=== PATIENT | female | born 1955 | race Caucasian/White ===

== ENCOUNTER → 2018-05-17 12:05 | Outpatient (CLI) | payer MEDICARE, SELFPAY | PROVIDERS: PCP Family Medicine; Visit Provider Surgery | DX: K21.9 Gastro-esophageal reflux disease without esophagitis (principal); E11.9 Type 2 diabetes mellitus without complications; Z79.4 Long term (current) use of insulin | CPT/HCPCS: 99213 ==

== ENCOUNTER 2018-06-21 01:05 | Outpatient (CLI) | payer MEDICARE, SELFPAY ==
[2018-06-21 11:31] LABS: Hemoglobin A1C 6.4 % (4.5-6.2)
== END 2018-06-21 01:25 ==
PROVIDERS: PCP Family Medicine; Visit Provider Internal Medicine Endocrinology, Diabetes & Metabolism
DX: E11.65 Type 2 diabetes mellitus with hyperglycemia (principal)
CPT/HCPCS: 36415; 83036

== ENCOUNTER 2018-10-29 08:18 | Outpatient (CLI) | payer MEDICARE, SELFPAY ==
[2018-10-29 13:16] LABS: Hemoglobin A1C 6.8 % (4.5-6.2)
== END 2018-10-29 08:38 ==
PROVIDERS: PCP Family Medicine; Visit Provider Family Medicine
DX: E11.65 Type 2 diabetes mellitus with hyperglycemia (principal)
CPT/HCPCS: 36415; 83036

== ENCOUNTER 2018-11-30 16:58 | Outpatient (REF) | payer MEDICARE, SELFPAY | END 2018-11-30 17:18 | LOC: LBN 16:58 | PROVIDERS: PCP Family Medicine; Visit Provider Family Medicine | DX: N39.0 Urinary tract infection, site not specified (principal) | CPT/HCPCS: 87077; 87086; 87186 ==

== ENCOUNTER 2018-12-15 11:22 | Outpatient (REF) | payer MEDICARE, SELFPAY | END 2018-12-15 11:42 | LOC: LBN 11:22 | PROVIDERS: PCP Family Medicine; Visit Provider Family Medicine | DX: N39.0 Urinary tract infection, site not specified (principal) | CPT/HCPCS: 87086 ==

== ENCOUNTER 2019-01-21 15:00 | Outpatient (REF) | payer MEDICARE, SELFPAY | END 2019-01-21 15:20 | LOC: LBN 15:00 | PROVIDERS: PCP Family Medicine; Visit Provider Family Medicine | DX: R30.0 Dysuria (principal) | CPT/HCPCS: 87077; 87086; 87186 ==

== ENCOUNTER 2019-04-19 02:06 | Outpatient (CLI) | payer MEDICARE, SELFPAY ==
[2019-04-19 08:56] LABS: Hemoglobin A1C 6.3 % (4.5-6.2)
== END 2019-04-19 02:26 ==
PROVIDERS: PCP Family Medicine; Visit Provider Family Medicine
DX: E11.9 Type 2 diabetes mellitus without complications (principal)
CPT/HCPCS: 36415; 83036

== ENCOUNTER 2019-07-26 02:08 | Outpatient (CLI) | payer MEDICARE, SELFPAY ==
[2019-07-26 09:34] LABS: Hemoglobin A1C 6.2 % (4.5-6.2)
[2019-07-26 09:38] LABS: Calculated LDL 138 mg/dL; Cholesterol 220 mg/dL (50-200); HDL Cholesterol 36 mg/dL (40-60); Triglyceride 231 mg/dL (30-150)
[2019-07-27 12:52] LABS: CREATININE 1.39 mg/dL (0.55-1.02); Estimated GFR 38.29 (mL/min/1.73m2); Potassium 3.9 mmol/L (3.5-5.1)
== END 2019-07-26 02:28 ==
PROVIDERS: PCP Family Medicine; Visit Provider Family Medicine
DX: E11.9 Type 2 diabetes mellitus without complications (principal); I10 Essential (primary) hypertension
CPT/HCPCS: 36415; 80061; 82565; 83036; 84132

== ENCOUNTER 2020-05-04 01:59 | Outpatient (CLI) | payer MEDICARE, SELFPAY ==
[2020-05-04 08:01] LABS: HCT 39.4 % (36.0-46.0); HGB 13.4 g/dL (12.0-15.5); Mean Corpuscular Hemoglobin 30.7 pg (27.0-33.0); Mean Corpuscular Volume 90.4 fL (80-95); Mean Platelet Volume 9.8 fL (8.0-11.0); Platelet Count 360 x1000/uL (130-400); RBC 4.36 m/cumm (4.00-5.20); RBC Distribution Width 13.4 % (11.7-14.6); White Blood Cell Count 5.45 k/cumm (4.4-10.8)
[2020-05-04 08:19] LABS: Hemoglobin A1C 6.5 % (3.8-5.6)
[2020-05-04 09:08] LABS: CREATININE 1.19 mg/dL (0.55-1.02); Calculated LDL 201 mg/dL (<100); Cholesterol 295 mg/dL (<200); Estimated GFR 45.67 (mL/min/1.73m2); HDL Cholesterol 35 mg/dL (40-60); Magnesium 1.7 mg/dL (1.8-2.4); Potassium 4.2 mmol/L (3.5-5.1); Triglyceride 299 mg/dL (<150)
== END 2020-05-04 02:19 ==
PROVIDERS: PCP Family Medicine; Visit Provider Family Medicine
DX: E78.5 Hyperlipidemia, unspecified (principal); K76.0 Fatty (change of) liver, not elsewhere classified; R73.9 Hyperglycemia, unspecified; I10 Essential (primary) hypertension; E83.42 Hypomagnesemia
CPT/HCPCS: 36415; 80061; 85027; 82565; 83036; 83735; 84132

== ENCOUNTER 2020-09-12 04:34 | Outpatient (CLI) | payer MEDICARE, SELFPAY ==
[2020-09-12 10:09] LABS: ALT 41 U/L (14-59); AST 26 U/L (15-37); Albumin 4.4 g/dL (3.4-5.0); Alkaline Phosphatase 69 U/L (46-116); Anion Gap 8.9 mmol/L (3-11); BUN 23 mg/dL (7-18); Bilirubin, Total 0.3 mg/dL (0.2-1.0); CO2 29.1 mmol/L (21.0-32.0); CREATININE 1.08 mg/dL (0.55-1.02); Calcium 9.6 mg/dL (8.5-10.1); Calculated LDL 200 mg/dL (<100); Chloride 105 mmol/L (98-107); Cholesterol 285 mg/dL (<200); Estimated GFR 51.08 (mL/min/1.73m2); Glucose 116 mg/dL (74-106); HDL Cholesterol 40 mg/dL (40-60); Sodium 143 mmol/L (136-145); TSH 2.11 uIU/mL (0.36-3.74); Total Protein 7.7 g/dL (6.4-8.2); Triglyceride 228 mg/dL (<150)
[2020-09-13 16:31] LABS: Lipoprotein (a) <6 mg/dL (<=30)
== END 2020-09-12 04:54 ==
PROVIDERS: PCP Family Medicine; Visit Provider Internal Medicine
DX: E78.2 Mixed hyperlipidemia (principal)
CPT/HCPCS: 36415; 80053; 80061; 83695; 84443

== ENCOUNTER 2020-11-09 02:04 | Outpatient (CLI) | payer MEDICARE, SELFPAY ==
[2020-11-09 08:42] LABS: Hemoglobin A1C 6.5 % (<5.7)
[2020-11-09 09:20] LABS: Magnesium 1.7 mg/dL (1.8-2.4)
== END 2020-11-09 02:24 ==
PROVIDERS: PCP Family Medicine; Visit Provider Family Medicine
DX: R73.9 Hyperglycemia, unspecified (principal); E83.42 Hypomagnesemia
CPT/HCPCS: 36415; 83036; 83735

== ENCOUNTER 2021-12-09 03:02 | Outpatient (CLI) | payer MEDICARE, SELFPAY ==
[2021-12-09 13:08] LABS: Hemoglobin A1C 6.3 % (<5.7)
[2021-12-09 13:24] LABS: BUN 25 mg/dL (7-18); CREATININE 1.2 mg/dL (0.55-1.02); Estimated GFR 44.95 (mL/min/1.73m2)
== END 2021-12-09 03:03 | disposition home or self-care (01) ==
LOC: LBO 03:02
PROVIDERS: PCP Family Medicine; Visit Provider Family Medicine
DX: N28.9 Disorder of kidney and ureter, unspecified (principal); E11.65 Type 2 diabetes mellitus with hyperglycemia
CPT/HCPCS: 36415; 84520; 82565; 83036

== ENCOUNTER 2021-12-10 11:21 | Outpatient (CLI) | payer MEDICARE, SELFPAY ==
--- NOTE | 2021-12-10 11:15 | RT.EKG_ITS ---
APPROVED REPORT Exam: Resting ECG Reason for Exam: chest discomfort Patient Location: O HR:81 bpm ECG Measurements Heart Rate 81 AXIS SD 169 P 56 QRSd 96 QRS -26 QT 388 T 93 QTc 450 Conclusion Sinus rhythm...normal P axis, V-rate 60- 99 Nonspecific T abnormalities, lateral leads...T <-0.10mV, I aVL V5 V6
== END 2021-12-10 11:22 | disposition home or self-care (01) ==
LOC: DI.CM 11:22
PROVIDERS: PCP Family Medicine; Visit Provider Family Medicine
DX: R07.89 Other chest pain (principal); R94.31 Abnormal electrocardiogram [ECG] [EKG]
CPT/HCPCS: 93010

== ENCOUNTER 2021-12-24 00:08 | Outpatient (CLI) | payer MEDICARE, SELFPAY ==
--- NOTE | 2021-12-24 06:45 | DI.NM_ITS ---
APPROVED REPORT Exam: Pharmacologic Patient Location: Out-Patient Room/Bed: Stress Nurse: Radha Jackson RN Ordering Provider:ANNIE CHAPIN, Contact Number: [phone] BMI: 27.67 Baseline Rhythm: Sinus Rhythm Indications: DIZZINESS, DYSPNEA ON EXERTION Medical History Medical History: HLD, DM, Migraines, Anxiety, Depression, Chronic pain, Venous insufficiency ob both lower extremities, GERD, Obstructive airway disease Cardiac Medications: Rosuvastatin, Omeprazole, Metoprolol succinate, Metformin, Losartan-Hydrochlorot hiazide, Insulin glargine, Ezetimibe, Aspirin, Allergies: Hydrocodone, Cortisone, Venlafaxine HCl, Amitriptyline, Lisinopril, Statins Cardiac Risk Factors: HTN, Hyperlipidemia, DM, PVD, Smoking (former) Previous Cardiac Procedures: None Pretest Chest Pain Characteristics: None Exercise History: Sedentary Physical Disabilities: None Lung Sounds: Clear to auscultation Heart Sounds: Regular Stress Test Details Test: Exercise stress converted to pharmacologic stress due to failure to obtain a diagnostic stress test. Reason for pharmacologic stress test: physical limitation. Nuclear Acquisition: Rest Tc-99m/Stress Tc-99m 1 day Rest Isotope: Tc-99m Sestamibi. Dose: 10.5 Date: 12/24/2021 Injection Time: 0900 Stress Isotope: Tc-99m Sestamibi. Dose: 31.0 Date: 12/24/2021 Injection Time: 1030 HR Resting HR Supine: 74 bpm Max Heart Rate (APMHR): 154.682074 bpm Resting HR Standin bpm Target HR (85% APMHR): 130.197272 bpm Max HR Achieved: 126 bpm % of APMHR: 81.82 Recovery HR: 95 bpm HR response to stress: Normal HR response to stress Comment: Nondiagnostic HR, unable to reach THR. Metoprolol succinate held for 24 hours prior to test. BP Resting BP Supine: 138/84 mmHg Resting BP Standin/78 mmHg Max BP: 138/84 mmHg Recovery BP: 126/74 mmHg BP response to stress: Normal blood pressure response to stress. ECG Resting ECG: Sinus Rhythm Ectopy: None Stress ECG: Sinus Tachycardia ST Change: No significant ST segment changes noted, Upsloping ST depression, Downsloping ST depressio n Arrhythmia: None Recovery ECG: Sinus Rhythm Recovery ST Change: Horizontal, Downward ST depression Lead(s): I, II, aVL, aVF, V4, V5 Recovery ST Deviation: 1 mm Recovery Arrhythmia: None Clinical Reason for Termination: Dyspnea Stress Symptoms: Dyspnea, Leg Fatigue, Headache Exercise duration: 06 min00 sec Highest Stage Reached: Stage 2: 2.5 mph at 12% grade. Exercise capacity: 7.05 METs Rate Pressure Product: [id number] Stress ECG Conclusion 1. Resting electrocardiogram was within normal limits 2. The patient underwent exercise treadmill testing and completed a workload of 7 METS. She also had pharmacologic stress with regadenoson 3. Normal heart rate and blood pressure response to exercise. Peak heart rate achieved was 81% of pr edicted for age 4. The electrocardiographic portion of the test was therefore nondiagnostic due to inadequate heart r ate 5. See MPI report Stress Test Summary STAGE Time (mins) Speed (mph) Grade (%) HR BP SYMPTOMS METS Supine 74 138/84 Standing 86 122/78 SpO2 98% 1 3 1.7 10 104 124/68 SpO2 96% 4.6 2 6 2.5 12 122 SpO2 98%, c/o moderate SOB 7 1 min post Lexiscan injection 124 134/68 SpO2 98% 3 min post Lexiscan injection 118 118/60 c/o continued mod. SOB, BLAIR 6 min post Lexiscan injection 105 118/70 tremulous/shaking 9 min post Lexiscan injection 95 126/74 symptoms resolved. Patient required prolonged recovery period for symptoms. Uncontrolled shaking in recovery period reso lved with a snack. MPI Conclusion Normal myocardial perfusion. There is no evidence of ischemia or prior infarction EF 58%, normal wall motion Radiologist Interpretation Radiologist agrees with Supervisor Coal Handling's Interpretation. Radiologist Interpretation by: Nani Newman MD Interpretation Date/Time: 12/24/2021 16:22:04
[2021-12-24] MEDS: Regadenoson 0.4 MG/5 ML SYR IVP (10:45)
== END 2021-12-24 00:28 ==
PROVIDERS: PCP Family Medicine; Visit Provider Family Medicine
DX: R06.09 Other forms of dyspnea (principal); R42 Dizziness and giddiness
CPT/HCPCS: 78452; 93016; 93018; 93017; J2785

== ENCOUNTER 2021-12-26 11:09 | Emergency (ER) | payer MEDICARE, SELFPAY ==
[2021-12-26 11:13] VITALS: BP 128/84; PULSE 90; RESP 18; TEMP 36.6; O2SAT 95
--- NOTE | 2021-12-26 11:15 | DI.CT_ITS ---
Exam(s) CT HEAD CERVICAL SPINE WO EXAM: CT HEAD CERVICAL SPINE WO CLINICAL HISTORY: Fall, posterior headache, blurry vision. TECHNIQUE: Imaging Protocol: Axial computed tomography images with coronal and sagittal reformatted images were created and reviewed COMPARISON: CT HEAD WITHOUT CONTRAST from 02/19/2018 FINDINGS: BRAIN: There are no skull fractures nor fluid in the visualized paranasal sinuses. There is no evidence of intracranial hemorrhage, mass effect, or shift of midline structures. There are no extra-axial fluid collections. The ventricles are not enlarged or shifted and there is no blo od within the ventricular system nor within the basal cisterns. CERVICAL SPINE: There is no evidence of fracture nor listhesis. No significant prevertebral soft tissue swelling. There is a sclerotic non expansile bone lesion in the right pedicle of C2. Probably benign bone jose nd. No other bone lesions seen. There is no significant facet arthropathy. There is no significant facet joint malalignment. No significant osseous lesions evident. Some degenerative disc disease changes are noted at C5-6 level. IMPRESSION: No acute intracranial findings on this noninfused CT scan of the brain. No evidence of cervical spine fracture, malalignment, nor acute compromise of the cervical spinal can al. Incidentally noted is a sclerotic non expansile density in the right pedicle of C2 vertebra which is probably a benign bone island. No other similar findings seen elsewhere in the cervical vertebrae. RADIATION DOSE DELIVERED: 1,447.42mGy.cm Total DLP DATA REPOSITORY: All CT scans at this facility are submitted to the National Radiology Data Registry (NRDR) Dose Index Registry (DIR) with the [employer] (A[employer]). RADIATION OPTIMIZATION: All CT scans at this facility use at least one of these dose optimization te chniques: automated exposure control; mA and/or kV adjustment per patient size (includes targeted exa ms where dose is matched to clinical indication); or iterative reconstruction.
[2021-12-26 11:23] VITALS: BP 146/91; PULSE 89; O2SAT 94
--- NOTE | 2021-12-26 11:33 | ED.GENADUL_ITS ---
Discharge Plan Disposition Patient Disposition: HOME Condition: Improving Discharge Details Clinical Impression: Closed head injury Primary Care Provider: Onesimo Chapman ED Provider: Kurtis Coburn Home Meds and New Rx's Prescriptions: Continued omeprazole 40 mg capsule,delayed release(DR/EC) 40 mg PO .every other day 0RF clobetasol [Temovate] 0.05 % cream 1 applic TP BID PRN0RF aspirin [Ecotrin Low Strength] 81 MG tablet,delayed release (DR/EC) 1 tab PO DAILY 0RF acetaminophen [Tylenol] 325 MG tablet 325 mg PO PRN 0RF lidocaine-prilocaine 2.5-2.5 % cream 1 applic TP DAILY AM PRN (Reason: neuropathy) Qty: 5 2RF (DME) blood-glucose meter [FreeStyle Lite Meter] Kit See Rx Instructions .ROUTE .MEDSUPPLY Qty: 1 0RF Rx Instructions: test sugar up to 3 x/day (DME) lancets 28 gauge misc 1 ea Miscellaneous DAILY Qty: 400 3RF Rx Instructions: test 3-4 x/day (DME) pen needle, diabetic [BD Ultra-Fine Alyson Pen Needle] 32 gauge x 5/32 needle 1 ea Miscellaneous DAILY Qty: 400 3RF Rx Instructions: 4 injections/day (DME) Blood Glucose Test Strip 1 ea Miscellaneous DAILY Qty: 400 3RF Rx Instructions: test 3-4 x/day duloxetine 60 mg capsule,delayed release(DR/EC) 60 mg PO DAILY Qty: 90 3RF duloxetine 30 mg capsule,delayed release(DR/EC) 30 mg PO DAILY Qty: 90 3RF Rx Instructions: take with a 60 mg each day losartan-hydrochlorothiazide [Hyzaar] 100-25 mg tablet 1 tab PO DAILY Qty: 90 3RF Label Comments: 05/25/18 Pt states she has been playing with not taking regularly. PG magnesium oxide [MagOx] 400 mg (241.3 mg magnesium) tablet 400 mg PO DAILY Qty: 90 3RF metformin 750 mg tablet extended release 24 hr 2,250 mg PO DAILY Qty: 270 3RF metoprolol succinate [Toprol XL] 50 mg tablet extended release 24 hr 50 mg PO DAILY Qty: 90 4RF trazodone 100 mg tablet 100 mg PO HS Qty: 90 3RF dulaglutide 1.5 mg/0.5 mL pen injector 1.5 mg subcut QWEEK Qty: 6 3RF rosuvastatin [Crestor] 5 mg tablet 5 mg PO .COMPLEX Qty: 24 3RF Rx Instructions: 5 mg PO twice weekly cetirizine [All Day Allergy (cetirizine)] 10 mg tablet 10 mg PO DAILY Qty: 90 3RF ezetimibe [Zetia] 10 mg tablet 10 mg PO DAILY Qty: 90 3RF fenofibrate nanocrystallized [Tricor] 145 mg tablet 145 mg PO DAILY Qty: 90 3RF cyclobenzaprine 10 mg tablet 10 - 20 mg PO BID MDD 30 mg PRN (Reason: muscle spasm) Qty: 90 2RF insulin aspart U-100 [Novolog Flexpen U-100 Insulin] 100 unit/mL (3 mL) insulin pen 15 unit subcut BID Qty: 15 5RF Lantus Solostar U-100 Insulin 100 unit/mL (3 mL) insulin pen 30 unit Sub-Q DAILY Qty: 15 5RF Rx Instructions: DX: DM e11.9 calcium carbonate 500 MG tablet,chewable 1 tab PO PRN PRN0RF Label Comments: 01-27-18 pt reports that she is no longer taking this med. hb Discharge Instructions Instructions: Head Injury (ED) Additional Instructions: Home to rest today. Continue Tylenol and ibuprofen as needed for pain. Sleep in a dark, quiet room. Return if you have escalating pain, develop vomiting, or any other acute concerns. As we discussed you will need to avoid games or work of concentration. Please minimize screen time Medical Decision Making 66-year-old female presents from home. She has been doing increased chores around the house since her had a heart attack. She was snowblowing 4 days ago, slipped and fell backwards striking her head on the ground. She did not have a loss of consciousness. She was able to ambulate back to her home. She developed persistent headache and blurry vision which has been going on for 4 days. She denies neck or back pain. No vomiting. Patient arrives to the ER alert, interactive, with unremarkable neurologic exam. She does have a history of migraine headaches and has had some sensitivity to bright light. Differential diagnosis includes concussion, migraine, must exclude intracranial hemorrhage or skull injury. Patient had IV access established, given parenteral medications and referred for CT images. CT CT images are without evidence of acute intracranial or cervical spine injury. See the formal report. Following medications, the patient is subjectively better. Her CT images show no acute intracranial findings, no evidence of cervical spine fracture, malalignment. See the formal report. HPI General Mode of arrival: ambulatory . Date/Time Provider Initiated Documentation: 12/26/21 11:10 . Limitations to Documentation: no limitations . Information obtained by: patient . History of Present Illness 66 year old F presents to the emergency department with the chief complaint of Headache after fall 4 days ago, described as moderate, Quality is described as dull and constant, and is localized to the head. Patient reports no radiation. Patient started experiencing this day(s) and it has been constant. improves with No relieving factors improve symptom(s), Other factors that worsen symptoms (Bright lights) . Patient notes denies nausea/vomiting. Patient did receive the following treatments prior to arrival, other ([id number]-[id number] pain medicine) Related Data Home Medications Medication Instructions Recorded Confirmed aspirin 81 mg tablet,delayed 1 tab PO DAILY tab-cap 01/11/13 12/26/21 release (Ecotrin Low Strength) calcium carbonate 200 mg calcium 1 tab PO PRN PRN 04/02/12/26/21 (500 mg) chewable tablet acetaminophen 325 mg tablet 325 mg PO PRN 04/03/16 12/26/21 (Tylenol) lidocaine-prilocaine 2.5 %-2.5 % 1 applic TP DAILY AM PRN #5 gm 12/30/19 12/26/21 topical cream omeprazole 40 mg capsule,delayed 40 mg PO .every other day cap 05/09/20 12/26/21 release blood-glucose meter (FreeStyle #1 each 06/13/20 12/10/21 Lite Meter) blood sugar diagnostic (Blood #400 strip 05/13/21 12/10/21 Glucose Test) lancets 28 gauge #400 each 05/13/21 12/10/21 pen needle, diabetic 32 gauge x #400 ea 05/13/21 12/10/21 (BD Ultra-Fine Alyson Pen Needle) duloxetine 30 mg capsule,delayed 30 mg PO DAILY #90 tab-cap 05/18/21 12/26/21 release duloxetine 60 mg capsule,delayed 60 mg PO DAILY #90 tab-cap 05/18/21 12/26/21 release losartan 100 1 tab PO DAILY #90 tab-cap 05/18/21 12/26/21 mg-hydrochlorothiazide 25 mg tablet (Hyzaar) magnesium oxide 400 mg (241.3 mg 400 mg PO DAILY #90 tab 05/18/21 12/26/21 magnesium) tablet (MagOx) metformin 750 mg tablet,extended 2,250 mg PO DAILY #270 tab-cap 05/18/21 12/26/21 release 24 hr metoprolol succinate 50 mg 50 mg PO DAILY #90 tab-cap 05/18/21 12/26/21 tablet,extended release 24 hr (Toprol XL) trazodone 100 mg tablet 100 mg PO HS #90 tab 05/18/21 12/26/21 clobetasol 0.05 % topical cream 1 applic TP BID PRN gm 06/19/21 12/26/21 (Temovate) dulaglutide 1.5 mg/0.5 mL 1.5 mg (0.5 mL) SUBCUT QWEEK #6 ml 07/18/21 12/26/21 subcutaneous pen injector rosuvastatin 5 mg tablet (Crestor) 5 mg PO .COMPLEX #24 tab 09/10/21 12/26/21 cetirizine 10 mg tablet (All Day 10 mg PO DAILY #90 tab 10/01/21 12/26/21 Allergy (cetirizine)) ezetimibe 10 mg tablet (Zetia) 10 mg PO DAILY #90 tab 11/13/21 12/26/21 fenofibrate nanocrystallized 145 145 mg PO DAILY #90 tab 11/13/21 12/26/21 mg tablet (Tricor) cyclobenzaprine 10 mg tablet 10 - 20 mg PO BID PRN #90 tab-cap 12/02/21 12/26/21 MDD 30 mg insulin aspart U-100 100 unit/mL 15 unit (0.15 mL) SUBCUT BID #15 ml 12/02/21 12/26/21 (3 mL) subcutaneous pen (Novolog Flexpen U-100 Insulin aspart) insulin glargine 100 unit/mL (3 30 unit (0.3 mL) SUB-Q DAILY #15 ml 12/02/21 12/26/21 mL) subcutaneous pen (Lantus Solostar U-100 Insulin) Previous Rx's Medication Instructions Recorded lidocaine-prilocaine 2.5 %-2.5 % 1 applic TP DAILY AM PRN #5 gm 12/30/19 topical cream blood-glucose meter (FreeStyle #1 each 06/13/20 Lite Meter) blood sugar diagnostic (Blood #400 strip 05/13/21 Glucose Test) lancets 28 gauge #400 each 05/13/21 pen needle, diabetic 32 gauge x #400 ea 05/13/21 (BD Ultra-Fine Alyson Pen Needle) duloxetine 30 mg capsule,delayed 30 mg PO DAILY #90 tab-cap 05/18/21 release duloxetine 60 mg capsule,delayed 60 mg PO DAILY #90 tab-cap 05/18/21 release losartan 100 1 tab PO DAILY #90 tab-cap 05/18/21 mg-hydrochlorothiazide 25 mg tablet (Hyzaar) magnesium oxide 400 mg (241.3 mg 400 mg PO DAILY #90 tab 05/18/21 magnesium) tablet (MagOx) metformin 750 mg tablet,extended 2,250 mg PO DAILY #270 tab-cap 05/18/21 release 24 hr metoprolol succinate 50 mg 50 mg PO DAILY #90 tab-cap 05/18/21 tablet,extended release 24 hr (Toprol XL) trazodone 100 mg tablet 100 mg PO HS #90 tab 05/18/21 dulaglutide 1.5 mg/0.5 mL 1.5 mg (0.5 mL) SUBCUT QWEEK #6 ml 07/18/21 subcutaneous pen injector rosuvastatin 5 mg tablet (Crestor) 5 mg PO .COMPLEX #24 tab 09/10/21 cetirizine 10 mg tablet (All Day 10 mg PO DAILY #90 tab 10/01/21 Allergy (cetirizine)) ezetimibe 10 mg tablet (Zetia) 10 mg PO DAILY #90 tab 11/13/21 fenofibrate nanocrystallized 145 145 mg PO DAILY #90 tab 11/13/21 mg tablet (Tricor) cyclobenzaprine 10 mg tablet 10 - 20 mg PO BID PRN #90 tab-cap 12/02/21 MDD 30 mg insulin aspart U-100 100 unit/mL 15 unit (0.15 mL) SUBCUT BID #15 ml 12/02/21 (3 mL) subcutaneous pen (Novolog Flexpen U-100 Insulin aspart) insulin glargine 100 unit/mL (3 30 unit (0.3 mL) SUB-Q DAILY #15 ml 12/02/21 mL) subcutaneous pen (Lantus Solostar U-100 Insulin) Allergies Allergy/AdvReac Type Severity Reaction Status Date / Time hydrocodone Allergy Severe Airway Verified 12/26/21 11:17 difficulty cortisone Allergy BLACK Verified 12/26/21 11:17 STREAKS venlafaxine HCl AdvReac Severe WEIRD Verified 12/26/21 11:17 [From Effexor] DREAMS amitriptyline AdvReac Intermediate Increased Verified 12/26/21 11:17 anxiety lisinopril AdvReac Intermediate cough Verified 12/26/21 11:17 Iaslmmp-HBB-OvJ Reductase AdvReac Intermediate muscle Verified 12/26/21 11:17 Inhibitor cramps [Ffdbepb-Gkz-Fho Reductase Inhibitor] TA HIPS Allergy Intermediate Airway Uncoded 12/26/21 11:17 difficulty General Stated Complaint: HeadInjury NAA: 3 Review of Systems Narrative: No neck pain no upper extremity weakness or tingling. Denies other injury. No vomiting. 8 systems were reviewed and otherwise negative. See HPI PFSH All Active Problems Closed head injury (Acute) Frontal skull lesion (Acute) Dizziness (Acute) Cyanosis of fingertip (Acute) Epistaxis (Acute) Hypomagnesemia (Acute) Other and unspecified hyperlipidemia (Acute) Metallic taste (Acute) Lichen sclerosus (Acute) Hyperlipidemia with target LDL less than 100 (Acute) Altered taste (Acute) Mouth pain (Acute) Urinary tract infection (Acute) Diabetes mellitus (Chronic) cut januvia in half if sugars remain well controlled, you can further cut your januvia to stop will further discuss GLP-1 meds as needed Hemorrhoids (Acute) History of arthroscopy of knee (Acute) History of bilateral salpingo-oophorectomy (Acute) Migraine (Acute) Status post carpal tunnel release (Acute) Status post cholecystectomy (Acute) Status post meniscectomy (Acute) Status post rotator cuff repair (Acute) Status post tonsillectomy (Acute) Status post vaginal hysterectomy (Acute) Vitamin D deficiency (Acute 02/16/18) Type II diabetes mellitus, uncontrolled (Acute 09/11/14) neuropathy Shoulder pain, right (Acute) 65/14; [facility] Recurrent UTI (Acute 02/16/18) OAD (obstructive airway disease) (Acute) 03/02/17 [facility]FT;MILD Myalgia (Acute 01/13/18) Menopausal vaginal dryness (Acute 02/16/18) Lichen planus (Acute 01/20/14) pelvic Increased body mass index (Acute) Fatty liver (Acute 04/19/13) 2009 Disorder characterized by back pain (Acute) lumbar stenosis MRI 09/24 chronic LBP and neck pain- and 03/20-working Diabetic peripheral neuropathy (Acute 12/24/15) Closed head injury (Acute 02/16/18) Atrophy of vagina (Acute 04/03/16) Alopecia (Acute) Adopted (Acute) FH UNKNOWN Pancreatitis (Acute 04/02/15) Osteoarthritis (Chronic) a. knees b. shoulders DDD (degenerative disc disease) (Chronic) Diabetes mellitus, type 2 (Chronic) Insulin long-term use (Chronic) Hypertension (Chronic) same meds Hyperlipidemia (Chronic) Anxiety (Chronic) Depression (Chronic) Chronic pain (Chronic) Metabolic syndrome (Chronic) Venous insufficiency of both lower extremities (Chronic) Diabetic neuropathy (Chronic) H/O surgical procedure (Chronic) a. left meniscus repair 12/2014 b. rotator cuff repair 2012 c. hysterectomy d. hemorrhoidectomy e. vein ablation in the LLE f. tonsillectomy g. carpal tunnel release, left side 09/2010, right side 01/2011 h. cholecystectomy Medical History Depressive disorder Fibromyalgia GERD (gastroesophageal reflux disease) Pancreatitis Type II diabetes mellitus Surgical History Arthroplasty of knee 12/24; LEFT KNEE MENISECTOMY Bilateral salpingectomy with oophorectomy (06/10/10) Cholecystectomy (06/10/10) ECG STRESS TEST 09/20/15 [facility] EGD - MAC (05/28/18) Open Carpal Tunnel release 09/20 LEFT 03/22 RIGHT Rotator Cuff Repair (~2012) Tonsillectomy Vaginal hysterectomy (~2005) No Cervix LSO done Family History Self Adopted Social History Smoking/Tobacco Use Status: Former Tobacco Use tobacco type: cigarettes Quit Date: 10/12/85 Second Hand Exposure: Yes Smoking risk assessment performed?: Yes Alcohol Intake: former Drug use: Never Details: THC edibiled Adopted: Yes Caregiver/Support person: No Household members: spouse Housing: house Communication Needs: None Pets and animals: Yes Pets and animals: cat(s) and dog(s) Sexually active: Yes Do you think of yourself as: straight/heterosexual Current gender identity: female What is your relationship status?: How often do you talk on the phone with friends or family?: three or more times per week How often do you get together with friends or relatives?: once per week Do you belong to any clubs or organized social groups?: no Panel score (0-1 are the most socially isolated patients): 2 Anais/Pentecostalism: Latter Day Special naais needs: No Seatbelt use: always Helmet use: No Drive intox or ride w/intox experienced truck driver: No Exam Narrative Exam Narrative: GEN: awake, alert, oriented 3. Pleasant, well groomed, interactive. HEAD: Normocephalic, atraumatic ENT: Mucous membranes moist, oropharynx unremarkable, tympanic membranes clear bilaterally external ear exam unremarkable EYES: PERRL, EOMI NECK: Full ROM, no RADHA, no menigismus CHEST/RESP: Nontender, clear to auscultation bilateral, no wheeze/rhonchi/rales CARDIOVASCULAR: RRR, no murmur, rub joel. 2+ Rad pulse bilateral ABDOMEN: Soft, nontender, no mass. +Bowel sounds EXT: Full ROM, no edema, no rash Neuro: Grossly normal neurologic exam, cranial nerves II through XII intact, [id number] intact, Romberg negative, conversant, interactive. Psych: Speech fluent, thoughts congruent, affect normal Course Vital Signs Vital signs: Vital Signs Temperature 36.6 C 12/26/21 11:13 Pulse 90 12/26/21 11:13 Respiratory Rate 18 12/26/21 11:13 Blood Pressure 128/84 12/26/21 11:13 Pulse Oximetry 95 12/26/21 11:13 Temperature 36.6 C 12/26/21 11:13 Temperature Source Temporal Artery Scan 12/26/21 11:13 Pulse 90 12/26/21 11:13 Respiratory Rate 18 12/26/21 11:13 Respiratory Effort Non-Labored 12/26/21 11:20 Respiratory Depth Normal 12/26/21 11:20 Respiratory Pattern Normal 12/26/21 11:20 Blood Pressure 128/84 12/26/21 11:13 Blood Pressure Position Sitting 12/26/21 11:13 Pulse Oximetry 95 12/26/21 11:13 Oxygen Delivery Method Room Air 12/26/21 11:13 Oxygen Flow Rate 0 12/26/21 11:13
[2021-12-26 11:36] VITALS: BP 132/94; PULSE 86; O2SAT 94
[2021-12-26] MEDS: Dexamethasone 4 MG/ML VIAL 8 MG IVP (11:43)
[2021-12-26] MEDS: Ketorolac 15 MG/ML VIAL IVP (11:43)
[2021-12-26] MEDS: ACETAMINOPHEN 1,000 MG/100 ML BTL 400 MG IVPB (11:44)
[2021-12-26 11:45] VITALS: BP 141/83; PULSE 85; O2SAT 98
[2021-12-26 12:59] VITALS: BP 131/65; PULSE 78; RESP 18; O2SAT 93
== END 2021-12-26 13:04 | disposition home or self-care (01) ==
PROVIDERS: Emergency Provider Emergency Medicine; PCP Family Medicine
DX: S09.8XXA Other specified injuries of head, initial encounter (principal); W00.0XXA Fall on same level due to ice and snow, initial encounter
CPT/HCPCS: 96374; 96375; 99284; 70450; 72125; 99283; J0131; J1100; J1885

== ENCOUNTER → 2022-01-03 02:06 | Outpatient (CLI) | payer MEDICARE, SELFPAY ==
--- NOTE | 2022-01-03 | DI.MRI_ITS ---
Exam(s) MR BRAIN WO/W EXAM: MR BRAIN WO/W CLINICAL HISTORY: RT EYE 6TH NERVE SECONDARY TO BLUNT HEAD TRAUMA,H49.21 TECHNIQUE: Multiplanar multisequence MRI of the brain was performed. CONTRAST MATERIAL: IV Contrast: 17 mL of Dotarem contrast administered. COMPARISON: CT CT HEAD CERVICAL SPINE WO from 12/26/2021 FINDINGS: VENTRICLES AND EXTRA AXIAL SPACES: Normal in size and morphology for the patient's age. HEMORRHAGE: None. CEREBRAL PARENCHYMA: No focus of restricted diffusion to suggest acute infarct. No space-occupying le dereje identified. There are few scattered hyperintense foci of in the white matter on the FLAIR and T2 weighted images likely reflecting small vessel ischemic disease. MIDLINE SHIFT: None. BRAINSTEM/CEREBELLUM: Normal. CALVARIUM: Normal. ENHANCEMENT: No suspicious enhancement identified. There is a linear enhancing vessel draining into a vein in the right cerebellum likely reflecting of venous angioma. VISUALIZED PARANASAL SINUSES/MASTOIDS: Clear. [place]UNG[place]K OF BECK: Normal flow void. PITUITARY GLAND: Unremarkable. OTHER FINDINGS: IMPRESSION: 1. No acute abnormality. No evidence of an acute infarct or intracranial mass. 2. Few scattered hyperintense foci in the white matter on the FLAIR and T2 weighted images likely ref lecting small vessel ischemic disease. 3. Vascular malformation in the right cerebellum likely reflecting a venous angioma. 4. No evidence of intracranial hemorrhage. DATA REPOSITORY:
[2022-01-03 12:42] LABS: Abs Immature Grans 0.02 10^3/uL (0.0-0.06); Absolute Lymphocyte Count 1.38 10^3/uL (1.2-3.4); Absolute Neutrophil Count 8.47 10^3/uL (1.2-6.7); Basophils % 0.5; Eosinophils % 0.5; HCT 39.9 % (36.0-46.0); HGB 12.9 g/dL (11.2-15.7); Immature Grans % 0.2; Lymphocytes % 12.5; MCH 29.2 pg (27.0-33.0); MCHC 32.3 % (32.0-36.0); MCV 90.3 fL (80-95); MPV 9.4 fL (8.0-11.0); Monocytes % 9.4; Neutrophils % 76.9; Nucleated RBC 0 %; Platelet Count 296 10^3/uL (130-400); RBC 4.42 10^6/uL (3.93-5.22); RDW-SD 43.4 fL; WBC 11.01 10^3/uL (4.4-10.8)
[2022-01-03 12:48] LABS: Absolute Basophil Count 0.06 10^3/uL (0.0-0.2); Absolute Eosinophil Count 0.06 10^3/uL (0.0-0.7)
[2022-01-03 12:49] LABS: Absolute Monocyte Count 1.03 10^3/uL (0.1-0.8); CREATININE 1.2 mg/dL (0.55-1.02); Estimated GFR 44.95 (mL/min/1.73m2)
[2022-01-03] MEDS: Gadoterate meglumine 20 ML VIAL 10 ML IV (12:53)
== END ==
PROVIDERS: PCP Family Medicine; Visit Provider Optometrist
DX: H49.21 Sixth [abducent] nerve palsy, right eye (principal); R94.02 Abnormal brain scan
CPT/HCPCS: 70553; 82565; 85025

== ENCOUNTER 2022-06-23 03:53 | Outpatient (CLI) | payer MEDICARE, SELFPAY ==
[2022-06-23 12:35] LABS: Magnesium 1.6 mg/dL (1.8-2.4)
== END 2022-06-23 03:54 | disposition home or self-care (01) ==
LOC: LBO 03:53
PROVIDERS: PCP Family Medicine; Visit Provider Family Medicine
DX: E83.42 Hypomagnesemia (principal)
CPT/HCPCS: 36415; 83735

== ENCOUNTER 2023-04-02 11:05 | Outpatient (CLI) | payer MEDICARE, SELFPAY ==
[2023-04-02 11:18] LABS: Hemoglobin A1C 7.7 % (<5.7)
[2023-04-02 11:30] LABS: CREATININE 1.3 mg/dL (0.55-1.02); Estimated GFR 45.07 (mL/min/1.73m2); Potassium 3.7 mmol/L (3.5-5.1)
== END 2023-04-02 11:06 | disposition home or self-care (01) ==
LOC: LBO 11:06
PROVIDERS: PCP Family Medicine; Visit Provider Family Medicine
DX: I10 Essential (primary) hypertension (principal); R73.9 Hyperglycemia, unspecified
CPT/HCPCS: 36415; 82565; 83036; 84132

== ENCOUNTER 2023-07-14 08:06 | Outpatient (CLI) | payer MEDICARE, SELFPAY ==
--- NOTE | 2023-07-14 08:00 | RT.EKG_ITS ---
APPROVED REPORT Exam: Resting ECG Reason for Exam: MCALLISTER Patient Location: O HR:94 bpm ECG Measurements Heart Rate 94 AXIS NV 150 P 43 QRSd 100 QRS -39 QT 374 T 103 QTc 468 Conclusion Sinus rhythm...normal P axis, V-rate 50- 99 Abnormal R-wave progression, early transition...QRS area>0 in V2 LVH with secondary repolarization abnormality...multi-LVH criteria, abnrm ST-T LAFB
== END 2023-07-14 08:07 | disposition home or self-care (01) ==
LOC: DI.CARD 08:07
PROVIDERS: PCP Family Medicine; Visit Provider Internal Medicine Cardiovascular Disease
DX: R06.00 Dyspnea, unspecified (principal)
CPT/HCPCS: 93010

== ENCOUNTER → 2023-07-14 13:08 | Outpatient (BNVA) | payer MEDICARE, SELFPAY | PROVIDERS: PCP Family Medicine; Referring Provider Family Medicine; Visit Provider Internal Medicine Cardiovascular Disease | DX: R00.2 Palpitations (principal); R06.09 Other forms of dyspnea; E11.42 Type 2 diabetes mellitus with diabetic polyneuropathy; Z79.4 Long term (current) use of insulin; I10 Essential (primary) hypertension | CPT/HCPCS: 93005; 93270; 99203; 99214 ==

== ENCOUNTER 2023-07-14 13:40 | Outpatient (CLI) | payer MEDICARE, SELFPAY | END 2023-07-14 13:41 | disposition home or self-care (01) | PROVIDERS: PCP Family Medicine; Visit Provider Internal Medicine Cardiovascular Disease | DX: R00.2 Palpitations (principal); R06.00 Dyspnea, unspecified | CPT/HCPCS: 93270 ==

== ENCOUNTER → 2023-08-13 01:28 | Outpatient (CLI) | payer MEDICARE, SELFPAY ==
--- NOTE | 2023-08-13 15:00 | DI.US_ITS ---
APPROVED REPORT EXAM: Comprehensive 2D, Doppler, and color-flow Echocardiogram Patient Location: Out-Patient Welfare Adviser: Stefanie Fall RDCS (AE) Indications: LV function, Dyspnea, Palpitations, AI Other Information Study Quality: Adequate Conclusion Normal left ventricular wall thickness and chamber size. Ejection fraction is 55%. There are no seg mental wall motion abnormalities Normal right ventricular size and systolic function Both atria are normal in size Aortic valve is trileaflet with mild regurgitation Normal mitral valve with mild regurgitation Estimated right ventricular systolic pressure is 16 mmHg Borderline dilated ascending aorta Wall motion Left Ventricle The left ventricle is normal size. The left ventricular systolic function is normal. The left ventric ular ejection fraction is within the normal range. There is normal left ventricular wall thickness. N o segmental wall motion abnormalities There is no ventricular septal defect visualized. LVEF is 55%. Right Ventricle The right ventricle is normal size. The right ventricular systolic function is normal. Atria The left atrium size is normal. The right atrium size is normal. The interatrial septum is intact wit h no evidence for an atrial septal defect. Aortic Valve The aortic valve is normal in structure. Aortic valve is trileaflet. There is no aortic valvular sten osis. Mild aortic regurgitation. Mitral Valve The mitral valve is normal in structure. No evidence of mitral valve stenosis. Mild mitral regurgitat ion. Tricuspid Valve The tricuspid valve is normal in structure. There is no tricuspid valve stenosis. Trace tricuspid reg urgitation. The RVSP is 16.0 mmHg. Pulmonic Valve The pulmonary valve is normal in structure. There is no pulmonic valvular stenosis. There is no pulmo karen valvular regurgitation. Great Vessels The aortic root is normal in size. The ascending aorta is borderline dilated. Ascending aorta is not well visualized. IVC is normal in size and collapses >50% with inspiration. Pericardium There is no pericardial effusion. 2D Dimensions IVSD d PLAX 0.87 cm F: 0.6-1.0 Ao Root d 3.14 cm F: 2.7 - 3.3 LVPW d PLAX 0.89 cm F: 0.6 - 1.0 Ao Asc Diam d 3.43 cm F: 2.3 - 3.1 LVID d PLAX 4.63 cm F: 3.8 - 5.2 LVDs 3.39 cm F: 2.2 - 3.5 LV EF Teichholz 52.2 % FS 26.69 % LV EDV (Teich) 98.8 mL LV ESV (Teich) 47.2 mL M-Mode TAPSE 1.87 cm (M/F) >1.7 Auto EF LV EDV A4C 94.8 mL LV EDV A2C 95.8 mL LV EDV BP 95.3 mL LV ESV A4C 51.4 mL LV ESV A2C 50.0 mL LV ESV BP 49.8 mL LVEF(%) A4C 45.8 % LVEF(%) A2C 47.8 % LVEF(%) BP 47.8 % LV SV A4C 43.4 ml LV SV A2C 45.8 ml LV SV BP 45.6 ml LV CO A4C 3.3 L/min LV CO A2C 3.5 L/min LV CO BP 3.4 L/min HR A4C 75.48 BPM HR A2C 75.60 BPM LV EDV Index (BP) LV Strain Long Pk Overal Avg (s) 14.09 RV Strain Global Peak Long. Strain A4C 16.34 Global Peak Long. Strain A4C FW 23.30 LA Volume LA Length A4C 4.1 cm LA Length A2C 4.2 cm LA Area A4C s 12.90 cm2 LA Area A2C s 13.50 cm2 LA Vol A4C A-L 34.42 mL LA Vol A2C A-L 37.20 mL LA Vol Biplane A-L 36.0 mL LA Vol/BSA A4C A-L LA Vol/BSA A2C A-L LA Vol/BSA BP A-L 18.5 mL/m2 LA Vol A4C MOD 31.5 mL LA Vol A2C MOD 34.8 mL LA Vol BP MOD 33.0 mL RA Volume RA Area A4C 9.1 cm2 RA ESV A4C (A-L) 17.3mL RA Vol/BSA A4C A-L RA Length A4C 4.1 cm RA ESV A4C (MOD) 16.8mL LV Diastology MV E' medial 0.062 (>0.07 m/s) MV E Vmax 0.69 (0.4-1.3 m/s) MV E/E' MED 11.24 (<14) MV A Vmax 0.85 (0.4-1.3 m/s) MV E' lateral 0.082 (>0.1 m/s) E/A Ratio 0.8 MV E/E' LAT 8.42 (<14) MV E' Average 0.072 m/s MV E/E'(average) 9.63 Aortic Valve AoV Vmax 1.29 m/s LVOT Vmax 0.91 m/s AoV Peak Grad 6.6 mmHg LVOT Peak Grad 3.3 mmHg AoV Area (Vmax) 1.95 cm2 LVOT VTI 0.216 m AoV VTI 0.275 m LVOT Mean Grad 1.6 mmHg AoV Mean Tavares. 0.90 m/s LVOT SV 59.36 mL AoV Mean Grad 3.8 mmHg LVOT Diam s 1.85 cm AoV Area (VTI) 2.16 cm2 Velocity Ratio 0.71 Mitral Valve MV DT 175 (160-240 msec) MV Vmax TIPS 0.84 m/s MV Mean Grad 1.3 (<2mmHg) MV VTI 0.193 m Pulmonary Valve PV Vmax 0.70 (0.5-1.5 m/s) RVOT Vmax 0.59 m/s PV Peak Grad 2.0 mmHg RVOT Peak Gr. 1.4 mmHg PV Mean Tavares 0.53 m/s RVOT VTI 0.129 m PV Mean Grad 1.3 mmHg RVOT Mean Gr. 0.8 mmHg Tricuspid Valve RA Pressure 3.00 mmHg TR Vmax 1.80 m/s TV S' 0.11 m/s TR Peak Grad 13.0 mmHg RVSP (TR) 16.0 mmHg
== END ==
PROVIDERS: PCP Family Medicine; Visit Provider Internal Medicine Cardiovascular Disease
DX: R00.2 Palpitations (principal); R06.00 Dyspnea, unspecified; Z98.890 Other specified postprocedural states
CPT/HCPCS: 93306

== ENCOUNTER 2023-08-13 07:22 | Outpatient (CLI) | payer MEDICARE, SELFPAY ==
--- NOTE | 2023-08-14 08:43 | W.CARDEVENT ---
Date of service: 08/14/23 Time of Service: 08:43 Cardiac Event Recorder Referring Provider:: Onesimo Chapman Indications:: Palpitations and dyspnea Cardiac Event Note: This is a 30-day cardiac event monitor. Patient was monitored for 28 days . Rhythm throughout was sinus with an average heart rate of 88. There was no bradycardia, maximum heart rate was 134 There was no atrial fibrillation, no high-grade AV block, no pauses greater than 3 seconds There were occasional premature ventricular contractions. There were several brief runs of nonsustained ventricular tachycardia 4-9 beats in duration There was 1 run of wide-complex tachycardia which occurred during sleep and appeared to be artifact, not ventricular tachycardia Patient's symptoms were reported which appeared to correlate to sinus rhythm, rarely to sinus tachycardia
== END 2023-08-13 07:23 | disposition home or self-care (01) ==
LOC: CARDOPNVT 07:22
PROVIDERS: PCP Family Medicine; Visit Provider Internal Medicine Cardiovascular Disease
DX: R00.2 Palpitations (principal); R06.00 Dyspnea, unspecified
CPT/HCPCS: 93272

== ENCOUNTER → 2023-08-28 11:37 | Outpatient (BNVA) | payer MEDICARE, SELFPAY | PROVIDERS: PCP Family Medicine; Referring Provider Family Medicine; Visit Provider Internal Medicine Cardiovascular Disease | DX: R00.2 Palpitations (principal); R06.00 Dyspnea, unspecified | CPT/HCPCS: 99212 ==

== ENCOUNTER 2023-10-29 14:39 | Outpatient (REF) | payer MEDICARE, SELFPAY ==
[2023-10-29 13:53] LABS: COMMENT (LAB VIEW ONLY) 130.47 mg/dL; Microalb ug/mg Crea 3.4 ug/mg Cr
== END 2023-10-29 14:40 | disposition home or self-care (01) ==
LOC: LBN 14:39
PROVIDERS: PCP Family Medicine; Visit Provider Family Medicine
DX: E11.9 Type 2 diabetes mellitus without complications (principal)
CPT/HCPCS: 82043; 82570

== ENCOUNTER → 2023-12-15 01:32 | Outpatient (CLI) | payer MEDICARE, SELFPAY ==
--- NOTE | 2023-12-15 07:30 | DI.US_ITS ---
Exam(s) US LOWER EXTREMITY VENOUS LT EXAM: US LOWER EXTREMITY VENOUS LT CLINICAL HISTORY: left leg pain, swelling behind knee,M79.89 TECHNIQUE: Left lower extremity venous ultrasound performed using grayscale, color-flow, and spectra l Doppler analysis. COMPARISON: No exams were available for comparison FINDINGS: The left common femoral, femoral and popliteal veins demonstrate normal compressibility, augmentation , and color Doppler. The posterior tibial veins are patent. The saphenofemoral junction is unremarka ble. There is no evidence of a Caruso cyst. The soft tissues are unremarkable. IMPRESSION: No evidence of a left lower extremity DVT. DATA REPOSITORY:
== END ==
PROVIDERS: PCP Family Medicine; Visit Provider Nurse Practitioner Family
DX: M79.89 Other specified soft tissue disorders (principal)
CPT/HCPCS: 93971

== ENCOUNTER 2023-12-20 12:29 | Emergency (ER) | payer MEDICARE, SELFPAY ==
[2023-12-20] VITALS (8 sets, daily range): BP systolic 143–185; BP diastolic 95–102; PULSE 83–98; RESP 12–16; TEMP 37.1; O2SAT 94–97
--- NOTE | 2023-12-20 14:08 | ED.GENADUL_ITS ---
Discharge Plan Disposition Patient Disposition: Home Condition: Improving Discharge Details Clinical Impression: Multilevel neural foraminal stenosis, Spinal stenosis Primary Care Provider: Onesimo Chapman ED Provider: Priyank Chen Home Meds and New Rx's Prescriptions: New cyclobenzaprine 5 mg tablet 5 mg PO QHS PRNQty: 7 0RF lidocaine [Lidoderm] 5 % adhesive patch,medicated 1 patch topical DAILY PRNQty: 15 0RF Rx Instructions: leave on most painful area for up to 12 hrs No Action benzonatate 100 mg capsule 100 mg PO TID PRN (Reason: cough) Qty: 60 0RF fenofibrate nanocrystallized [Tricor] 145 mg tablet 145 mg PO DAILY Qty: 90 3RF insulin aspart U-100 [Novolog FlexPen U-100 Insulin] 100 unit/mL (3 mL) insulin pen 17 unit subcut BID Qty: 15 3RF Rx Instructions: dose increase 01/08/23 insulin glargine [Lantus Solostar U-100 Insulin] 100 unit/mL (3 mL) insulin pen 30 unit Sub-Q DAILY Qty: 30 3RF Rx Instructions: DX: DM e11.9 losartan-hydrochlorothiazide [Hyzaar] 100-25 mg tablet 1 tab PO DAILY Qty: 90 3RF Patient Comments: 05/25/18 Pt states she has been playing with not taking regularly. PG metformin 1,000 mg tablet 1,000 mg PO BID Qty: 180 3RF omeprazole 40 mg capsule,delayed release(DR/EC) 40 mg PO .every other day PRN (Reason: gerd) Qty: 45 3RF rosuvastatin [Crestor] 5 mg tablet 5 mg PO .COMPLEX Qty: 24 3RF Rx Instructions: 5 mg PO twice weekly trazodone 100 mg tablet 100 mg PO HS PRN (Reason: insomnia) Qty: 90 3RF Trulicity 1.5 mg/0.5 mL pen injector 1.5 mg subcut QWEEK Qty: 2 11RF clobetasol [Temovate] 0.05 % cream 1 applic TP BID PRN aspirin [Ecotrin Low Strength] 81 MG tablet,delayed release (DR/EC) 1 tab PO DAILY acetaminophen [Tylenol] 325 MG tablet 325 mg PO PRN lidocaine-prilocaine 2.5-2.5 % cream 1 applic TP DAILY AM PRN (Reason: neuropathy) Qty: 5 2RF (DME) blood-glucose meter [FreeStyle Lite Meter] Kit See Rx Instructions .ROUTE .MEDSUPPLY Qty: 1 0RF Rx Instructions: test sugar up to 3 x/day magnesium oxide [MagOx] 400 mg (241.3 mg magnesium) tablet 400 mg PO DAILY Qty: 90 3RF (DME) pen needle, diabetic [BD Ultra-Fine Alyson Pen Needle] 32 gauge x needle 1 ea Miscellaneous DAILY Qty: 400 3RF Rx Instructions: 4 injections/day (DME) FreeStyle Lite Strips Strip See Rx Instructions .ROUTE TID Qty: 300 3RF Rx Instructions: test 3 x/day (DME) lancets [FreeStyle Lancets] 28 gauge misc See Rx Instructions .Route Qty: 300 3RF Rx Instructions: test 3 x/day (DME) Freestyle Lancing Device See Rx Instructions .Route .MEDSUPPLY Qty: 1 0RF Rx Instructions: Freestyle Lancing Device to be used with lancets. ezetimibe [Zetia] 10 mg tablet 10 mg PO DAILY Qty: 90 3RF cetirizine [All Day Allergy (cetirizine)] 10 mg tablet 10 mg PO DAILY Qty: 90 3RF duloxetine 30 mg capsule,delayed release(DR/EC) 60 mg PO DAILY Qty: 90 3RF Rx Instructions: See task: 11/04/23. -hb cyclobenzaprine 10 mg tablet 20 mg PO BID MDD 30 mg PRN (Reason: muscle spasm) Qty: 90 2RF Rx Instructions: See task 11/04/23. -hb calcium carbonate 500 MG tablet,chewable 1 tab PO PRN PRN Patient Comments: 01-27-18 pt reports that she is no longer taking this med. hb Discharge Instructions Instructions: Lumbar Spinal Stenosis (ED) Additional Instructions: Please follow-up with your primary care physician. Return to the emergency department for any worsening symptoms HPI General Date/Time Provider Initiated Documentation: 12/20/23 12:51 . HPI Narrative: 68-year-old female presents with atraumatic left lower extremity pain, pain mainly located behind left knee rating down left leg now rating from lower back down entire leg, worse in certain positions and after prolonged immobility, denies history of blood clots, does have history of left lower extremity venous ablation. Endorses recent ultrasound lower extremity for this issue that was negative for blood clot. Related Data Home Medications Medication Instructions Recorded Confirmed aspirin 81 mg tablet,delayed 1 tab PO DAILY 01/11/13 12/20/23 release (Ecotrin Low Strength) calcium carbonate 200 mg calcium 1 tab PO PRN PRN 04/02/15 12/20/23 (500 mg) chewable tablet acetaminophen 325 mg tablet 325 mg PO PRN 04/03/16 12/20/23 (Tylenol) lidocaine-prilocaine 2.5 %-2.5 % 1 applic topical DAILY AM PRN 12/30/19 12/20/23 topical cream neuropathy #5 grams blood-glucose meter (FreeStyle #1 ea 06/13/20 12/14/23 Lite Meter kit) clobetasol 0.05 % topical cream 1 applic topical BID PRN 06/19/21 12/20/23 (Temovate) magnesium oxide 400 mg (241.3 mg 400 mg PO DAILY #90 tabs 05/20/23 12/20/23 magnesium) tablet (MagOx) pen needle, diabetic 32 gauge x #400 ea 06/03/23 12/14/2332 (BD Ultra-Fine Alyson Pen Needle) blood sugar diagnostic (FreeStyle #300 strips 06/05/23 12/14/23 Lite Strips) lancets 28 gauge (FreeStyle #300 ea 09/01/23 12/14/23 Lancets) Freestyle Lancing Device #1 ea 09/07/23 12/14/23 benzonatate 100 mg capsule 100 mg PO TID PRN cough #60 caps 10/07/23 12/20/23 cetirizine 10 mg tablet (All Day 10 mg PO DAILY #90 tabs 10/19/23 12/20/23 Allergy (cetirizine)) ezetimibe 10 mg tablet (Zetia) 10 mg PO DAILY #90 tabs 10/19/23 12/20/23 dulaglutide 1.5 mg/0.5 mL 1.5 mg (0.5 mL) subcut QWEEK #2 mL 10/29/23 12/20/23 subcutaneous pen injector ([employer]) fenofibrate nanocrystallized 145 145 mg PO DAILY #90 tabs 10/29/23 12/20/23 mg tablet (Tricor) insulin aspart U-100 100 unit/mL 17 unit (0.17 mL) subcut BID #15 mL 10/29/23 12/20/23 (3 mL) subcutaneous pen (Novolog FlexPen U-100 Insulin aspart) insulin glargine 100 unit/mL (3 30 unit (0.3 mL) subcut DAILY #30 10/29/23 12/20/23 mL) subcutaneous pen (Lantus mL Solostar U-100 Insulin) losartan 100 1 tab PO DAILY #90 tab-caps 10/29/23 12/20/23 mg-hydrochlorothiazide 25 mg tablet (Hyzaar) metformin 1,000 mg tablet 1,000 mg PO BID #180 tabs 10/29/23 12/20/23 omeprazole 40 mg capsule,delayed 40 mg PO .every other day PRN gerd 10/29/23 12/20/23 release #45 caps rosuvastatin 5 mg tablet (Crestor) 5 mg PO .COMPLEX #24 tabs 10/29/23 12/20/23 trazodone 100 mg tablet 100 mg PO HS PRN insomnia #90 tabs 10/29/23 12/20/23 cyclobenzaprine 10 mg tablet 20 mg (2 x 10 mg) PO BID PRN 11/04/23 12/20/23 muscle spasm #90 tab-caps duloxetine 30 mg capsule,delayed 60 mg (2 x 30 mg) PO DAILY #90 caps 11/04/23 12/20/23 release cyclobenzaprine 5 mg tablet 5 mg PO QHS PRN #7 tabs 12/20/23 lidocaine 5 % topical patch 1 patch topical DAILY PRN #15 ea 12/20/23 (Lidoderm) Previous Rx's Medication Instructions Recorded lidocaine-prilocaine 2.5 %-2.5 % 1 applic topical DAILY AM PRN 12/30/19 topical cream neuropathy #5 grams blood-glucose meter (FreeStyle #1 ea 06/13/20 Lite Meter kit) magnesium oxide 400 mg (241.3 mg 400 mg PO DAILY #90 tabs 05/20/23 magnesium) tablet (MagOx) pen needle, diabetic 32 gauge x #400 ea 06/03/23 (BD Ultra-Fine Alyson Pen Needle) blood sugar diagnostic (FreeStyle #300 strips 06/05/23 Lite Strips) lancets 28 gauge (FreeStyle #300 ea 09/01/23 Lancets) Freestyle Lancing Device #1 ea 09/07/23 benzonatate 100 mg capsule 100 mg PO TID PRN cough #60 caps 10/07/23 cetirizine 10 mg tablet (All Day 10 mg PO DAILY #90 tabs 10/19/23 Allergy (cetirizine)) ezetimibe 10 mg tablet (Zetia) 10 mg PO DAILY #90 tabs 10/19/23 dulaglutide 1.5 mg/0.5 mL 1.5 mg (0.5 mL) subcut QWEEK #2 mL 10/29/23 subcutaneous pen injector ([employer]) fenofibrate nanocrystallized 145 145 mg PO DAILY #90 tabs 10/29/23 mg tablet (Tricor) insulin aspart U-100 100 unit/mL 17 unit (0.17 mL) subcut BID #15 mL 10/29/23 (3 mL) subcutaneous pen (Novolog FlexPen U-100 Insulin aspart) insulin glargine 100 unit/mL (3 30 unit (0.3 mL) subcut DAILY #30 10/29/23 mL) subcutaneous pen (Lantus mL Solostar U-100 Insulin) losartan 100 1 tab PO DAILY #90 tab-caps 10/29/23 mg-hydrochlorothiazide 25 mg tablet (Hyzaar) metformin 1,000 mg tablet 1,000 mg PO BID #180 tabs 10/29/23 omeprazole 40 mg capsule,delayed 40 mg PO .every other day PRN gerd 10/29/23 release #45 caps rosuvastatin 5 mg tablet (Crestor) 5 mg PO .COMPLEX #24 tabs 10/29/23 trazodone 100 mg tablet 100 mg PO HS PRN insomnia #90 tabs 10/29/23 cyclobenzaprine 10 mg tablet 20 mg (2 x 10 mg) PO BID PRN 11/04/23 muscle spasm #90 tab-caps duloxetine 30 mg capsule,delayed 60 mg (2 x 30 mg) PO DAILY #90 caps 11/04/23 release cyclobenzaprine 5 mg tablet 5 mg PO QHS PRN #7 tabs 12/20/23 lidocaine 5 % topical patch 1 patch topical DAILY PRN #15 ea 12/20/23 (Lidoderm) Allergies Allergy/AdvReac Type Severity Reaction Status Date / Time hydrocodone Allergy Severe Airway Verified 12/20/23 12:43 difficulty cortisone Allergy BLACK Verified 12/20/23 12:43 STREAKS venlafaxine HCl AdvReac Severe WEIRD Verified 12/20/23 12:43 [From Effexor] DREAMS amitriptyline AdvReac Intermediate Increased Verified 12/20/23 12:43 anxiety lisinopril AdvReac Intermediate cough Verified 12/20/23 12:43 [id number]-[id number] Reductase AdvReac Intermediate muscle Verified 12/20/23 12:43 Inhibitor cramps [Zrsuzdl-Ykr-Xix Reductase Inhibitor] TA HIPS Allergy Intermediate Airway Uncoded 12/20/23 12:43 difficulty General Stated Complaint: Orthopedic ANA: 4 Review of Systems Narrative: Review of Systems Constitutional: negative Eyes: negative ENT: negative Cardiovascular: negative Respiratory: negative Gastrointestinal: negative : negative Musculoskeletal: Leg pain, back pain Skin: negative Neurologic: negative Psych: negative Exam Narrative Exam Narrative: Physical Examination General: alert, awake, cooperative, resting comfortably, no acute distress HEENT: normocephalic, atraumatic; PERRL, EOM intact, conjunctiva normal; no nasal discharge; moist mucous membranes, oral and pharyngeal mucosa normal, tolerating secretions Neck: supple, trachea midline; full ROM Chest: normal to inspection Respiratory: normal respiratory effort, speaking in full sentences Skin: no lesions, rashes or trauma appreciated Neuro: AAOx3, normal speech, moving all extremities Extremities: Full strength and sensation bilateral lower extremities, slight edema to left lower extremity compared to right mainly involving ankle and distal lower extremity, warm well-perfused soft compartments, no signs of trauma, range of motion foot ankle and knee intact reproduction of symptomatology with straight leg raise Psych: Appropriate mood and affect Course Vital Signs Vital signs: Vital Signs Temperature 37.1 C 12/20/23 12:45 Pulse 93 H 12/20/23 12:45 Respiratory Rate 16 12/20/23 12:45 Blood Pressure 143/98 H 12/20/23 12:45 Pulse Oximetry 97 12/20/23 12:45 Temperature 37.1 C 12/20/23 12:45 Temperature Source Temporal Artery Scan 12/20/23 12:45 Pulse 93 H 12/20/23 12:45 Respiratory Rate 16 12/20/23 12:45 Respiratory Effort Normal, Non-Labored 12/20/23 12:47 Blood Pressure 143/98 H 12/20/23 12:45 Blood Pressure Position Sitting 12/20/23 12:45 Pulse Oximetry 97 12/20/23 12:45 Oxygen Delivery Method Room Air 12/20/23 12:45 Oxygen Flow Rate 0 12/20/23 12:45 Pain Level 10 12/20/23 13:42 Comment taking tyl/ibu with no relief 12/20/23 12:45 Medical Decision Making 68-year-old female presents with 2 weeks of atraumatic left lower extremity pain, mild swelling, mainly behind left knee rating down left leg, now radiating from upper back down leg, no bowel or bladder issues afebrile nontoxic, range of motion intact reproduction of symptomatology with straight leg raise left lower extremity, recent ultrasound left lower extremity negative for blood clot per patient no history of thromboembolic disease, history of left lower extremity venous ablation in the past, endorses chronic mild edema in this leg. No erythema induration or warmth to suggest cellulitis. Consider sciatica versus Caruso's cyst versus peripheral neuropathy versus DVT low suspicion for arterial insult as patient has good perfusion examination and strong DP pulse. Will repeat ultrasound, bedside left lower extremity, will trial analgesia anti- inflammatory muscle relaxant for possible sciatica. Disposition pending results and reassessment 14:30 bedside ultrasound negative for DVT. High clinical suspicion for sciatica. Have ordered CT lumbar spine to assess for any occult vertebral injury. 16: 38 patient feeling much better after medication. CT evidence of central spinal canal stenosis as well as neural foraminal stenosis worse on left L4-L5 L5-S1 consistent with patient's dermatomal distribution of discomfort. Home care instructions return precautions given. Quality:SDOH Health Related Social Needs: No Data to Display PFSH All Active Problems Spinal stenosis (Acute) Multilevel neural foraminal stenosis (Acute) Skin lesion (Acute) Palpitations (Acute) Constipation (Acute) MCALLISTER (dyspnea on exertion) (Acute) Frontal skull lesion (Acute) Dizziness (Acute) Cyanosis of fingertip (Acute) Epistaxis (Acute) Hypomagnesemia (Acute) Other and unspecified hyperlipidemia (Acute) Metallic taste (Acute) Lichen sclerosus (Acute) Hyperlipidemia with target LDL less than 100 (Acute) Altered taste (Acute) Mouth pain (Acute) Urinary tract infection (Acute) Diabetes mellitus (Chronic) cut januvia in half if sugars remain well controlled, you can further cut your januvia to stop will further discuss GLP-1 meds as needed Hemorrhoids (Acute) History of arthroscopy of knee (Acute) History of bilateral salpingo-oophorectomy (Acute) Migraine (Acute) Status post carpal tunnel release (Acute) Status post cholecystectomy (Acute) Status post meniscectomy (Acute) Status post rotator cuff repair (Acute) Status post tonsillectomy (Acute) Status post vaginal hysterectomy (Acute) Vitamin D deficiency (Acute 02/16/18) Type II diabetes mellitus, uncontrolled (Acute 09/11/14) neuropathy Shoulder pain, right (Acute) 03/16/14; [facility] Recurrent UTI (Acute 02/16/18) OAD (obstructive airway disease) (Acute) 03/02/17 [id number];MILD Myalgia (Acute 01/13/18) Menopausal vaginal dryness (Acute 02/16/18) Lichen planus (Acute 01/20/14) pelvic Increased body mass index (Acute) Fatty liver (Acute 04/19/13) US 2009 Disorder characterized by back pain (Acute) lumbar stenosis MRI 09/24 chronic LBP and neck pain- and 03/20-working Diabetic peripheral neuropathy (Acute 12/24/15) Closed head injury (Acute 02/16/18) Atrophy of vagina (Acute 04/03/16) Alopecia (Acute) Adopted (Acute) FH UNKNOWN Pancreatitis (Acute 04/02/15) Osteoarthritis (Chronic) a. knees b. shoulders DDD (degenerative disc disease) (Chronic) Diabetes mellitus, type 2 (Chronic) Insulin long-term use (Chronic) Hypertension (Chronic) same meds Hyperlipidemia (Chronic) Anxiety (Chronic) Depression (Chronic) Chronic pain (Chronic) Metabolic syndrome (Chronic) Venous insufficiency of both lower extremities (Chronic) Diabetic neuropathy (Chronic) H/O surgical procedure (Chronic) a. left meniscus repair 12/2014 b. rotator cuff repair 2012 c. hysterectomy d. hemorrhoidectomy e. vein ablation in the LLE f. tonsillectomy g. carpal tunnel release, left side 09/2010, right side 01/2011 h. cholecystectomy Medical History Depressive disorder GERD (gastroesophageal reflux disease) Pancreatitis Fibromyalgia Type II diabetes mellitus Surgical History Tonsillectomy Rotator Cuff Repair (~2012) Open Carpal Tunnel release 09/20 LEFT 03/22 RIGHT Vaginal hysterectomy (~2005) No Cervix LSO done EGD - MAC (05/28/18) ECG STRESS TEST 09/20/15 [facility] Cholecystectomy (06/10/10) Bilateral salpingectomy with oophorectomy (06/10/10) Arthroplasty of knee 12/24; LEFT KNEE MENISECTOMY Family History Self Adopted Social History Smoking/Tobacco Use Status: Former Tobacco Use tobacco type: cigarettes Quit Date: 10/12/85 Second Hand Exposure: Yes Smoking risk assessment performed?: Yes Alcohol Intake: former Drug use: Never Substance use type: does not use Details: THC edibiled Adopted: Yes Caregiver/Support person: No Household members: spouse Housing: house Communication Needs: None Pets and animals: Yes Pets and animals: cat(s) and dog(s) Sexually active: Yes Do you think of yourself as: straight/heterosexual Current gender identity: female What is your relationship status?: How often do you talk on the phone with friends or family?: three or more times per week How often do you get together with friends or relatives?: once per week Do you belong to any clubs or organized social groups?: no Panel score (0-1 are the most socially isolated patients): 2 Anais/Gnosticism: Sabianist Special anais needs: No Seatbelt use: always Helmet use: No Drive intox or ride w/intox bus driver supervisor: No
[2023-12-20] MEDS: Cyclobenzaprine 10 MG TAB PO (14:10)
[2023-12-20] MEDS: Dexamethasone 10 MG/ML VIAL PO (14:11)
--- NOTE | 2023-12-20 14:15 | DI.CT_ITS ---
Exam(s) CT LUMBAR SPINE WO EXAM: CT LUMBAR SPINE WO CLINICAL HISTORY: back pain radiating down posterior left leg. TECHNIQUE: Imaging Protocol: Axial computed tomography images with coronal and sagittal reformatted images were created and reviewed COMPARISON: CT ABD PELVIS WITH CONTRAST from 04/02/2015 FINDINGS: Bones: The last intervertebral disc space is designated the L5/S1 level for the numbering purpose of this examination. There are endplate osteophytes at several levels of the lumbar spine particularly at L3-4 and L4-L5. There is disc space narrowing and a vacuum disc at L4-L5. Degenerative changes o f the facets are seen at L4-L5 and L5-S1. There is a hemangioma seen in the L2 vertebral body. Alig nment is satisfactory. No fracture is seen. T12-L1: No disc herniations or bulges are present. No central spinal canal or neural foraminal steno sis. L1-2: No disc herniations or bulges are present. No central spinal canal or neural foraminal stenosi s. L2-3: No disc herniations or bulges are present. No central spinal canal or neural foraminal stenosi s. L3-4: There is a diffuse disc bulge. This, in addition to the degenerative changes causes moderate central spinal canal stenosis. There is moderately severe right and moderate left neural foraminal s tenosis. L4-5: There is a mild diffuse disc bulge. This does contribute to cause mild central spinal canal n arrowing. There is mild right and moderately severe left neural foraminal stenosis. L5-S1: No disc herniation or bulge is present. There are degenerative changes of the facets. This causes mild narrowing of the left neural foramen. No significant right neural foraminal stenosis is seen. Soft Tissues: The visualized SI joints and sacrum are will maintained. The paraspinal soft tissues a re unremarkable. Atherosclerotic calcification is seen of the abdominal aorta. There is a 2.5 cm rig ht adnexal cyst. IMPRESSION: 1. Degenerative changes seen at L3-L4 causing moderate central spinal canal stenosis and bilateral ne ural foraminal stenosis, right greater than left. 2. Degenerative changes at L4-L5 resulting in mild central spinal canal stenosis and bilateral neural foraminal stenosis, left greater than right. 3. Degenerative changes at L5-S1 causing neural foraminal narrowing on the left. RADIATION DOSE DELIVERED: Total DLP Total DLP DATA REPOSITORY: All CT scans at this facility are submitted to the National Radiology Data Registry (NRDR) Dose Index Registry (DIR) with the [employer] (A[employer]). RADIATION OPTIMIZATION: All CT scans at this facility use at least one of these dose optimization te chniques: automated exposure control; mA and/or kV adjustment per patient size (includes targeted exa ms where dose is matched to clinical indication); or iterative reconstruction.
[2023-12-20] MEDS: Lidocaine 5% Patch 1 PATCH TP (14:17)
--- NOTE | 2023-12-20 16:22 | DI.VRAD_ITS ---
PROCEDURE INFORMATION: Exam: CT Lumbar Spine Without Contrast Exam date and time: 12/20/2023 3:14 PM Age: 68 years old Clinical indication: Other: Back pain radiating down posterior left leg TECHNIQUE: Imaging protocol: Computed tomography of the lumbar spine without contrast. Radiation optimization: All CT scans at this facility use at least one of these dose optimization techniques: automated exposure control; mA and/or kV adjustment per patient size (includes targeted exams where dose is matched to clinical indication); or iterative reconstruction. COMPARISON: No relevant prior studies available. FINDINGS: Bones/joints: Mild degenerative bilateral sacroiliac joints. Mild curvature of spine convex to the left. No acute fracture or dislocation. No vertebral body compression deformity. No spondylolisthesis. L4 and L2 vertebral body hemangiomas. At L3-L4, there is a posterior disc bulge with bilateral facet joint arthropathy and ligamentum flavum hypertrophy causing moderate thecal sac compression and moderate narrowing of bilateral neural. At L4-L5, there narrowing of the disc space, desiccation of disc, vacuum phenomenon and anterior osteophytes. There is a posterior osteophyte disc complex causing severe thecal sac compression and moderate to severe narrowing both neural foramina. Vasculature: There are vascular calcifications. Soft tissues: Unremarkable. IMPRESSION: Moderate to severe degenerative disease at L3-L4 and L4-L5, more pronounced at the later. Dictated and Authenticated by: Cortez Camara MD. Ordering:GERRI Yost MD
== END 2023-12-20 16:48 | disposition home or self-care (01) ==
PROVIDERS: Emergency Provider Emergency Medicine; PCP Family Medicine
DX: M79.605 Pain in left leg (principal); M79.672 Pain in left foot; M54.50 Low back pain, unspecified; M48.00 Spinal stenosis, site unspecified; Z86.79 Personal history of other diseases of the circulatory system; E11.9 Type 2 diabetes mellitus without complications
CPT/HCPCS: 99284; 72131; 99283; J1100

== ENCOUNTER 2025-01-13 00:24 | Outpatient (CLI) | payer MEDICARE, SELFPAY ==
--- NOTE | 2025-01-13 08:15 | DI.MAMMO_ITS ---
Exam(s) MAMMO SCREENING EXAM: MAMMO SCREENING CLINICAL HISTORY: screening, Z12.39. TECHNIQUE: Bilateral full field digital CC and MLO mammographic images were obtained with 3D tomosyn thesis and utilizing computer aided detection (CAD). COMPARISON: None. Last mammogram was 2013 and not available. FINDINGS: There are no CAD designations. There are no new spiculated masses nor malignant appearing microcalcification groups. There is no significant architectural distortion nor skin thickening-retraction. IMPRESSION: No radiographic evidence of malignancy. BI-RADS Category 1 - Negative Breast Density - Category B - Scattered areas of fibroglandular density Breast density Category C or D implies that the patient has dense breast tissue. Dense breast tissue can make it harder to find cancer on a mammogram. Dense breast tissue is also associated with an incr eased risk of breast cancer. This information about the result of the mammogram report was provided to the patient to raise their awareness. Use this report when you speak with the patient about their risks for breast cancer, which includes their family history. At that time, you may recommend additional screening tests (Ultrasoun d or MRI) as these tests may add significant information. A negative radiographic report should not delay biopsy if a dominant or clinically suspicious mass is present. Up to ten percent of cancers are not identified on mammography. A negative report may reinforce clinical impression. Adenosis and dense breasts may obscure an underlying neoplasm. False positive reports average 6 to 10%. Patient will receive a letter notifying them of these results.
--- NOTE | 2025-01-13 08:15 | DI.DEXA_ITS ---
Exam(s) XR DEXA BONE DENSITY W/WO LEANNA EXAM: XR DEXA BONE DENSITY W/WO LEANNA CLINICAL HISTORY: Asymptomatic menopausal state, Z78.0; osteoporosis screening TECHNIQUE: COMPARISON: CR LUMBAR SPINE COMPLETE from 08/21/2014 FINDINGS: Lateral Spine Image: Unremarkable. No compression deformities identified. Left hip: Total T-Score: 1.1 Total Z-Score: 2.6 T- and Z-scores: Within normal limits. Lumbar Spine: Total T-Score: 1.0 Total Z-Score: 3.0 T- and Z-scores: Within normal limits. IMPRESSION: No evidence of osteoporosis.
== END 2025-01-13 00:44 ==
LOC: DI 00:26
PROVIDERS: PCP Family Medicine; Visit Provider Family Medicine
DX: Z78.0 Asymptomatic menopausal state (principal); Z12.31 Encounter for screening mammogram for malignant neoplasm of breast; Z13.820 Encounter for screening for osteoporosis
CPT/HCPCS: 77063; 77067; 77080

== ENCOUNTER 2025-01-13 00:58 | Outpatient (CLI) | payer MEDICARE, SELFPAY ==
[2025-01-13 16:54] LABS: CREATININE 1.4 mg/dL (0.55-1.02); Calculated LDL 140 mg/dL (<100); Cholesterol 237 mg/dL (<200); Estimated GFR 40.73 (mL/min/1.73m2); HDL Cholesterol 55 mg/dL (>or=50); Magnesium 1.9 mg/dL (1.8-2.4); Potassium 3.7 mmol/L (3.5-5.1); Triglyceride 213 mg/dL (<150)
[2025-01-16 11:21] LABS: Hepatitis C Ab w Rflx HCV PCR Negative (Negative)
== END 2025-01-13 00:59 | disposition home or self-care (01) ==
LOC: LBO 00:58
PROVIDERS: PCP Family Medicine; Visit Provider Family Medicine
DX: E78.5 Hyperlipidemia, unspecified (principal); Z11.59 Encounter for screening for other viral diseases; I10 Essential (primary) hypertension; E83.42 Hypomagnesemia
CPT/HCPCS: 36415; 80061; 86803; 82565; 83735; 84132

== ENCOUNTER 2025-02-07 17:56 | Outpatient (REF) | payer MEDICARE, SELFPAY ==
[2025-02-07 21:37] LABS: COMMENT (LAB VIEW ONLY) 67.77 mg/dL; Microalb ug/mg Crea 9.7 ug/mg Cr
== END 2025-02-07 17:57 | disposition home or self-care (01) ==
LOC: LBN 17:56
PROVIDERS: PCP Family Medicine; Visit Provider Family Medicine
DX: E11.9 Type 2 diabetes mellitus without complications (principal)
CPT/HCPCS: 82043; 82570

== ENCOUNTER 2025-04-28 00:36 | Outpatient (CLI) | payer MEDICARE, SELFPAY ==
--- NOTE | 2025-04-28 07:45 | DI.MRI_ITS ---
Exam(s) MR LUMBAR SPINE WO EXAM: MR LUMBAR SPINE WO CLINICAL HISTORY: worsening back pain with leg weakness,DISORDER CHARACTERIZED BY BACK PAIN. TECHNIQUE: Multiplanar multisequence MRI of the Lumbar spine was performed. COMPARISON: CT CT LUMBAR SPINE WO from 12/20/2023 FINDINGS: Conus medullaris is at normal level. There is no evidence of conus mass nor subjacent clumping of intrathecal nerve roots to suggest arachnoiditis. The distal thecal sac appears unremarkable.There is no evidence of Tarlov intrasacral cysts nor other significant findings within the sacral canal Bones:There are no fractures nor ominous osseous lesions in the lumbar vertebral bodies and visualized sacrum. Benign intraosseous hemangioma is noted in the inferior aspect of L2 vertebral body as well as in superior aspect of L1 vertebral body as well as in the mid aspect of L4 vertebral body and L5 vertebral body. There are no lytic osseous lesions evident. With respect to the individual levels... T12-L1: Unremarkable L1-2: Normal disc height and signal. No disc herniation nor central canal stenosis.No foraminal stenosis L2-3: Relatively preserved disc height and signal. There is mild asymmetric annular bulging left of center but no prominent disc herniation nor central canal stenosis. Also no significant foraminal stenosis. L3-4: This level exhibits moderate disc space narrowing which is more prominent on the right than the left side. There are Modic type 2 sub endplate fatty marrow changes on the right side of the disc space. Posteriorly there is broad annular bulging and superimposed central disc herniation. This extends posteriorly 6 mm and significantly indents the thecal sac resulting in moderate spinal canal stenosis. The annular bulging extends into the floor of both exiting neural foramina and there is mild bilateral foraminal stenosis. There is moderate facet arthropathy at this level. L4-5: This level exhibits chronic advanced disc space narrowing which is relatively symmetric. Posteriorly there is broad annular bulging and a superimposed central disc herniation which extends posteriorly 6-7 mm and is approximately 12 mm wide. This indents the anterior thecal sac. There is moderate central canal stenosis. Annular bulging extends into the floor of the exiting left neural foramen. There is mild left-sided foraminal stenosis. There is no significant foraminal stenosis on the opposite-right side. There are moderate degenerative changes in both facet joints at this level. L5-S1: This level exhibits normal disc height and signal with no evidence of significant disc herniation or central canal stenosis and there is no foraminal stenosis evident at this level. There are only mild facet joint degenerative changes at this level. Soft tissues: paraspinal soft tissues appear unremarkable. IMPRESSION: 1. Significant findings at L3-4 and L4-5 levels as described above. There is moderate central spinal canal stenosis due to the findings at these 2 levels. 2. There is an element of bilateral foraminal stenosis at L3-4 level and mild foraminal stenosis on the left side at L4-5 level. 3. L5-S1 level appears unremarkable. DATA REPOSITORY:
== END 2025-04-28 00:56 ==
PROVIDERS: PCP Family Medicine; Visit Provider Family Medicine
DX: M48.061 Spinal stenosis, lumbar region without neurogenic claudication (principal)
CPT/HCPCS: 72148

== ENCOUNTER 2025-06-20 08:29 | Outpatient (CLI) | payer MEDICARE, SELFPAY ==
--- NOTE | 2025-06-20 | DI.MRI_ITS ---
Exam(s) MR CERVICAL SPINE WO EXAM: MR CERVICAL SPINE WO CLINICAL HISTORY: LOSS OF BALANCE R26.89 TECHNIQUE: Multiplanar multisequence MRI of the cervical spine was performed without intravenous contrast. COMPARISON: No exams were available for comparison FINDINGS: CERVICOMEDULLARY JUNCTION: Intact with no evidence of cerebellar tonsillar ectopia. No obvious abnormality of the odontoid process. No evidence of Chiari 1 malformation. CERVICAL SPINAL CORD: There is no abnormal signal in the cervical spinal cord and no evidence of focal cord atrophy nor focal cord swelling. OSSEOUS:There are no cervical fractures evident. No significant osseous lesions in the cervical vertebrae. The normal cervical curvature is maintained. INDIVIDUAL LEVELS: C2-3: No disc herniation nor central canal stenosis. No foraminal stenosis. No facet arthropathy. C3-4: Normal disc height. Posteriorly there is mild slightly asymmetric annular bulging, slightly more so on the right. However, there is no prominent disc protrusion or central canal stenosis. No significant foraminal stenosis. Minimal facet degenerative changes. C4-5: This level exhibits preserved disc height. Posteriorly there is relatively symmetrical annular bulging which slightly fat at the anterior thecal sac but not the spinal cord. AP measurement of the canal at this level is 1 cm. Minimal degenerative changes in the facet joints. No significant foraminal stenosis. C5-6: This level exhibits mild disc space narrowing and there is mild symmetrical posterior annular bulging and small bilateral Luschka joint osteophytes. Central canal dimensions are lower normal. There are degenerative changes in the right facet joint at this level; less so in the left facet joint. Mild bilateral foraminal stenosis noted. C6-7: This level exhibits minimal disc space narrowing. Posteriorly there is a small shallow subligamentous disc bulge which flattens the anterior thecal sac but not the spinal cord. Central canal dimensions are lower normal. Facet joints appear unremarkable. There are no Luschka joint osteophytes. No significant foraminal stenosis. C7-T1: No disc herniation nor central canal stenosis. No facet arthropathy.No foraminal stenosis. IMPRESSION: 1. Mild findings as described above. No prominent disc herniations and no central canal stenosis nor tight foraminal stenosis. 2. No abnormal signal in the cervical spinal cord and no evidence of focal edema nor focal atrophy of the cervical spinal cord. No syringomyelia. 3. DATA REPOSITORY:
== END 2025-06-20 08:49 ==
LOC: DI 08:29
PROVIDERS: PCP Family Medicine; Visit Provider Neurological Surgery
DX: R26.89 Other abnormalities of gait and mobility (principal)
CPT/HCPCS: 72141